=== PATIENT | male | born 1990 | race Caucasian/White ===

== ENCOUNTER 2016-10-17 16:11 | Emergency (ER) | payer SELFPAY ==
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
[~2016-10-17 16:11] MED LIST: BACTRIM DS TABL1 TA1 PO; CLEOCIN HCL300 M1 PO; ERYTHROMYCIN F PO; FLEXERIL PO; KEFLEX PO; MEDROL DOSEPAK4 MG PO; NO MEDICATIONS; PREDNISONE PO; ULTRAM PO; VICODIN PO; VOLTAREN75 MG PO
== END 2016-10-17 17:15 | disposition hospice, home (50) ==
LOC: SED 16:11
DX: S02.32XA Fracture of orbital floor, left side, initial encounter for closed fracture (principal); S02.31XA Fracture of orbital floor, right side, initial encounter for closed fracture; S01.01XA Laceration without foreign body of scalp, initial encounter; Z23 Encounter for immunization; F17.200 Nicotine dependence, unspecified, uncomplicated; V49.40XA Driver injured in collision with unspecified motor vehicles in traffic accident, initial encounter; Y92.410 Unspecified street and highway as the place of occurrence of the external cause
CPT/HCPCS: 70450; 70486; 72125; 90471; 90715; 96374; 99285; J0690